=== PATIENT | female | born 1960 | race Two or more races ===

== ENCOUNTER 2021-01-06 16:12 | Inpatient (IN) | payer OTHER, MEDICAID ==
[~2021-01-06] VITALS: Ht 157.5 cm; Wt 128.1 kg
[2021-01-06 17:03] LABS: Basophils # (auto) 0.1 10 ^3/uL (0-0.2); Basophils % (auto) 0.8 % (0.0-2.0); Eosinophils # (auto) 0.1 10 ^3/uL (0-0.8); Eosinophils % (auto) 0.7 % (0.0-7.0); Hematocrit 42.8 % (36.0-46.0); Hemoglobin 14.8 g/dL (12.2-16.2); Lymphocytes # (auto) 3.7 10 ^3/uL (0.4-5.4); Mean Corpuscular Hemoglobin 30.3 pg (28.0-32.0); Mean Corpuscular Hgb Conc. 34.7 g/dL (32.0-36.0); Mean Corpuscular Volume 87.4 fL (80.0-100.0); Monocytes # (auto) 0.6 10 ^3/uL (0-1.3); Monocytes % (auto) 6.2 % (0.0-12.0); Neutrophils # (auto) 4.5 10 ^3/uL (1.6-8.6); Neutrophils % (auto) 50.3 % (37.0-80.0); Nucleated Red Blood Cells % 0.1 %; Platelet Count (auto) 269 10^3/uL (140-450); Red Cell Distribution Width 13.4 % (11.8-14.3); White Blood Cell 8.9 10^3/uL (4.4-10.8)
[2021-01-06 17:21] LABS: Albumin 3.6 g/dL (3.4-5.0); Anion Gap 9 (5-15); Aspartate Aminotransferase 70 U/L (15-37); BUN/Creatinine Ratio 25.9; Blood Urea Nitrogen 15 mg/dL (7-18); Calcium 8.9 mg/dL (8.5-10.1); Carbon Dioxide 23 mmol/L (21-32); Chloride 108 mmol/L (98-107); GFR African American 137 mL/min; GFR Non-African American 113 mL/min; Glucose 112 mg/dL (74-106); Magnesium 2.1 mg/dL (1.6-2.6); Sodium 140 mmol/L (136-145)
[2021-01-06 17:25] LABS: Alanine Aminotransferase 67 U/L (13-56); Alkaline Phosphatase 108 U/L (45-117); Bilirubin, Total 0.4 mg/dL (0.2-1.0); Total Protein 7.4 g/dL (6.4-8.2)
[2021-01-07] MEDS ORDERED: NITROGLYCERIN 0.4 MG SL TAB SL PRN (00:30)
[2021-01-07] MEDS ORDERED: DOCUSATE SOD 100 MG CAP PO PRN (00:30)
[2021-01-07] MEDS ORDERED: TEMAZEPAM 15 MG CAP PO PRN (00:30)
[2021-01-07] MEDS ORDERED: MORPHINE SULFATE 4 MG/ML SYR/VIAL IV PRN (00:30)
[2021-01-07] MEDS ORDERED: MORPHINE SULF INJ 2 MG/ML SYRINGE 1ML IV PRN (00:30)
[2021-01-07] MEDS: SODIUM CHLOR 0.9% PF (SALINE LOCK) 10ML VIAL/SYR IV SCH ×3 (06:19→21:34)
[2021-01-07 09:00] VITALS: BP 118/81
[2021-01-07] MEDS: ZINC SULFATE 220mg CAP or TAB PO SCH (09:29)
[2021-01-07] MEDS: ASCORBIC ACID 500 MG TAB PO SCH ×2 (09:30→21:33)
[2021-01-07] MEDS: MULTIPLE VITAMIN TAB PO SCH (09:30)
[2021-01-07] MEDS: FAMOTIDINE 20 MG TAB PO SCH ×2 (09:30→21:34)
[2021-01-07] MEDS: HYDROcodone-ACET 5/325MG TAB PO PRN (09:31)
[2021-01-07] MEDS ORDERED: METF-370 PO (09:57)
[2021-01-07] MEDS ORDERED: METO-289 PO (09:57)
[2021-01-07] MEDS ORDERED: NITR0.4S29 SL (09:57)
[2021-01-07] MEDS ORDERED: RIVA20TA PO (09:57)
[2021-01-07] MEDS ORDERED: FURO20TA3 PO (09:57)
[2021-01-07] MEDS ORDERED: TRAM50TA2 PO (09:57)
[2021-01-07] MEDS ORDERED: ATOR20TA50 PO (09:57)
[2021-01-07] MEDS ORDERED: CARVEDILOL 12.5 MG TAB PO SCH (10:00)
[2021-01-07] MEDS ORDERED: ENOXAPARIN SOD 40 MG/0.4 ML SYRINGE SC SCH (10:00)
[2021-01-07 11:25] LABS: Basophils # (auto) 0 10 ^3/uL (0-0.2); Basophils % (auto) 0.5 % (0.0-2.0); Eosinophils # (auto) 0 10 ^3/uL (0-0.8); Eosinophils % (auto) 0.5 % (0.0-7.0); Hematocrit 42.1 % (36.0-46.0); Hemoglobin 14.4 g/dL (12.2-16.2); Lymphocytes # (auto) 2.5 10 ^3/uL (0.4-5.4); Lymphocytes % (auto) 37.8 % (10.0-50.0); Mean Corpuscular Hgb Conc. 34.2 g/dL (32.0-36.0); Mean Corpuscular Volume 87.9 fL (80.0-100.0); Monocytes # (auto) 0.3 10 ^3/uL (0-1.3); Monocytes % (auto) 4.9 % (0.0-12.0); Neutrophils # (auto) 3.7 10 ^3/uL (1.6-8.6); Neutrophils % (auto) 56.3 % (37.0-80.0); Nucleated Red Blood Cells % 0.1 %; Platelet Count (auto) 258 10^3/uL (140-450); Red Blood Cells 4.79 10^6/uL (4.0-5.20); Red Cell Distribution Width 13.6 % (11.8-14.3); White Blood Cell 6.5 10^3/uL (4.4-10.8)
[2021-01-07 12:50] VITALS: BP 105/66
[2021-01-07 13:39] LABS: Albumin 3.4 g/dL (3.4-5.0); BUN/Creatinine Ratio 24.6; Bilirubin, Total 0.5 mg/dL (0.2-1.0)
[2021-01-07 16:31] VITALS: BP 102/62
[2021-01-07] MEDS: ACETAMINOPHEN 325 MG TAB PO PRN (17:02)
[2021-01-07] MEDS: RIVAROXABAN 20 MG TAB PO SCH (17:17)
[2021-01-07] MEDS: METOPROLOL TARTRATE 50 MG TAB PO SCH (21:34)
[2021-01-07 22:30] VITALS: BP 138/69
[2021-01-08 05:00] VITALS: BP 105/73
[2021-01-08] MEDS: SODIUM CHLOR 0.9% PF (SALINE LOCK) 10ML VIAL/SYR IV SCH ×3 (06:00→21:40)
[2021-01-08 07:51] LABS: Basophils # (auto) 0 10 ^3/uL (0-0.2); Basophils % (auto) 0.7 % (0.0-2.0); Eosinophils # (auto) 0.1 10 ^3/uL (0-0.8); Eosinophils % (auto) 1.1 % (0.0-7.0); Hematocrit 40.7 % (36.0-46.0); Lymphocytes # (auto) 2.6 10 ^3/uL (0.4-5.4); Lymphocytes % (auto) 49.4 % (10.0-50.0); Mean Corpuscular Hemoglobin 30.3 pg (28.0-32.0); Mean Corpuscular Hgb Conc. 34.3 g/dL (32.0-36.0); Mean Corpuscular Volume 88.4 fL (80.0-100.0); Monocytes # (auto) 0.4 10 ^3/uL (0-1.3); Neutrophils # (auto) 2.2 10 ^3/uL (1.6-8.6); Neutrophils % (auto) 41.8 % (37.0-80.0); Nucleated Red Blood Cells % 0.7 %; Platelet Count (auto) 241 10^3/uL (140-450); Red Blood Cells 4.61 10^6/uL (4.0-5.20); Red Cell Distribution Width 13.3 % (11.8-14.3); White Blood Cell 5.3 10^3/uL (4.4-10.8)
[2021-01-08 08:03] LABS: Albumin 3.3 g/dL (3.4-5.0); Calcium 8.7 mg/dL (8.5-10.1); Potassium 4.3 mmol/L (3.5-5.1)
[2021-01-08 08:07] LABS: BUN/Creatinine Ratio 18.3; Bilirubin, Total 0.4 mg/dL (0.2-1.0); Total Protein 6.7 g/dL (6.4-8.2)
[2021-01-08] MEDS: ASCORBIC ACID 500 MG TAB PO SCH ×2 (08:55→21:39)
[2021-01-08] MEDS: ASPirin 81 mg TAB PO SCH (08:55)
[2021-01-08] MEDS: MULTIPLE VITAMIN TAB PO SCH (08:55)
[2021-01-08] MEDS: METOPROLOL TARTRATE 50 MG TAB PO SCH ×2 (08:56→21:38)
[2021-01-08] MEDS: FAMOTIDINE 20 MG TAB PO SCH ×2 (08:56→21:39)
[2021-01-08] MEDS: ACETAMINOPHEN 325 MG TAB PO PRN (08:57)
[2021-01-08] MEDS: ZINC SULFATE 220mg CAP or TAB PO SCH (08:58)
[2021-01-08 09:00] VITALS: BP 106/56
[2021-01-08] MEDS ORDERED: diphenhdrAMINE HCL 25 MG CAP PO ONE (10:30)
[2021-01-08] MEDS: traMADol HCL 50 MG TAB PO PRN ×2 (10:31→21:40)
[2021-01-08 13:00] VITALS: BP 140/93
[2021-01-08 16:52] VITALS: BP 125/87
[2021-01-08] MEDS: RIVAROXABAN 20 MG TAB PO SCH (18:00)
[2021-01-08] MEDS: ONDANSETRON HCL 4 MG/2 ML VIAL IV PRN (18:32)
[2021-01-08] MEDS: HYDROcodone-ACET 5/325MG TAB PO PRN (19:04)
[2021-01-08 22:00] VITALS: BP 132/66
[2021-01-09] MEDS: ACETAMINOPHEN 325 MG TAB PO PRN (03:27)
[2021-01-09] MEDS: ONDANSETRON HCL 4 MG/2 ML VIAL IV PRN (03:28)
[2021-01-09] MEDS: SODIUM CHLOR 0.9% PF (SALINE LOCK) 10ML VIAL/SYR IV SCH ×3 (03:58→22:00)
[2021-01-09 05:00] VITALS: BP 123/65
[2021-01-09 08:50] VITALS: BP 112/64
[2021-01-09] MEDS: ASPirin 81 mg TAB PO SCH (10:00)
[2021-01-09] MEDS: ASCORBIC ACID 500 MG TAB PO SCH ×2 (10:00→21:30)
[2021-01-09] MEDS: METOPROLOL TARTRATE 50 MG TAB PO SCH ×2 (10:00→21:30)
[2021-01-09] MEDS: FAMOTIDINE 20 MG TAB PO SCH ×2 (10:00→21:30)
[2021-01-09] MEDS: MULTIPLE VITAMIN TAB PO SCH (10:01)
[2021-01-09] MEDS: traMADol HCL 50 MG TAB PO PRN ×3 (10:01→22:52)
[2021-01-09] MEDS: ZINC SULFATE 220mg CAP or TAB PO SCH (10:01)
[2021-01-09 13:04] VITALS: BP 140/77
[2021-01-09 16:49] VITALS: BP 115/76
[2021-01-09] MEDS: RIVAROXABAN 20 MG TAB PO SCH (17:55)
[2021-01-09 22:00] VITALS: BP 126/72
[2021-01-10 05:00] VITALS: BP 115/67
[2021-01-10] MEDS: SODIUM CHLOR 0.9% PF (SALINE LOCK) 10ML VIAL/SYR IV SCH ×2 (06:18→13:10)
[2021-01-10] MEDS: traMADol HCL 50 MG TAB PO PRN (06:26)
[2021-01-10 09:00] VITALS: BP 110/68
[2021-01-10] MEDS: ASPirin 81 mg TAB PO SCH (09:13)
[2021-01-10] MEDS: FAMOTIDINE 20 MG TAB PO SCH (09:13)
[2021-01-10] MEDS: ASCORBIC ACID 500 MG TAB PO SCH (09:14)
[2021-01-10] MEDS: ZINC SULFATE 220mg CAP or TAB PO SCH (09:14)
[2021-01-10] MEDS: MULTIPLE VITAMIN TAB PO SCH (09:14)
[2021-01-10] MEDS: METOPROLOL TARTRATE 50 MG TAB PO SCH (09:15)
[2021-01-10] MEDS: ONDANSETRON HCL 4 MG/2 ML VIAL IV PRN (11:12)
[2021-01-10] MEDS ORDERED: KETOROLAC TROMETH 30 MG/ML 1ML VIAL IV PRN (11:30)
[2021-01-10 13:00] VITALS: BP 110/73
[2021-01-10 17:28] VITALS: BP 108/66
== END 2021-01-10 17:40 | disposition home or self-care (01) | DRG 309 ==
LOC: ER 16:12 → TELE 01-07 00:16 → TELE-WESTW 01-07 08:12
PROVIDERS: ADMIT Nurse Practitioner Family; ATTEND Family Medicine
DX: I48.20 Chronic atrial fibrillation, unspecified (principal); D68.59 Other primary thrombophilia; I25.2 Old myocardial infarction; I11.0 Hypertensive heart disease with heart failure; Z79.01 Long term (current) use of anticoagulants; Z79.84 Long term (current) use of oral hypoglycemic drugs; Z79.899 Other long term (current) drug therapy; R79.89 Other specified abnormal findings of blood chemistry; Z20.822 Contact with and (suspected) exposure to COVID-19; I50.9 Heart failure, unspecified
CPT/HCPCS: 36415; 71045; 71046; 80053; 83036; 83735; 83880; 84443; 84484; 85025; 87426; 93005; 93306; G0378; J1885; J2405

== ENCOUNTER 2021-02-05 12:03 | Inpatient (IN) | payer OTHER, MEDICAID ==
[~2021-02-05] VITALS: Ht 157.5 cm; Wt 123.7 kg
[~2021-02-05 12:03] MED LIST: ATOR20TA50 PO; FURO20TA3 PO; METF-370 PO; METO-289 PO; NITR0.4S29 SL; RIVA20TA PO; TRAM50TA2 PO
[2021-02-05] MEDS ORDERED: ASPirin 81 mg TAB PO ONE (12:45)
[2021-02-05 12:54] LABS: Basophils # (auto) 0 10 ^3/uL (0-0.2); Basophils % (auto) 0.4 % (0.0-2.0); Eosinophils # (auto) 0 10 ^3/uL (0-0.8); Eosinophils % (auto) 0.4 % (0.0-7.0); Hematocrit 45.4 % (36.0-46.0); Hemoglobin 15.2 g/dL (12.2-16.2); Lymphocytes # (auto) 3.9 10 ^3/uL (0.4-5.4); Lymphocytes % (auto) 47.6 % (10.0-50.0); Mean Corpuscular Hemoglobin 29.4 pg (28.0-32.0); Mean Corpuscular Hgb Conc. 33.4 g/dL (32.0-36.0); Monocytes # (auto) 0.6 10 ^3/uL (0-1.3); Neutrophils # (auto) 3.7 10 ^3/uL (1.6-8.6); Neutrophils % (auto) 44.6 % (37.0-80.0); Nucleated Red Blood Cells % 0.1 %; Red Blood Cells 5.16 10^6/uL (4.0-5.20); Red Cell Distribution Width 13.3 % (11.8-14.3); White Blood Cell 8.2 10^3/uL (4.4-10.8)
[2021-02-05 13:08] LABS: INR 1.15 (0.9-1.15)
[2021-02-05 13:13] LABS: Chloride 111 mmol/L (98-107); Sodium 141 mmol/L (136-145)
[2021-02-05 13:22] LABS: Alanine Aminotransferase 46 U/L (13-56); Albumin 3.7 g/dL (3.4-5.0); Alkaline Phosphatase 103 U/L (45-117); Anion Gap 7 (5-15); Aspartate Aminotransferase 43 U/L (15-37); BUN/Creatinine Ratio 15.3; Bilirubin, Total 0.4 mg/dL (0.2-1.0); Blood Urea Nitrogen 9 mg/dL (7-18); Calcium 8.9 mg/dL (8.5-10.1); Carbon Dioxide 23 mmol/L (21-32); GFR African American 135 mL/min; GFR Non-African American 111 mL/min; Glucose 103 mg/dL (74-106); Magnesium 2.3 mg/dL (1.6-2.6); Total Protein 7.7 g/dL (6.4-8.2)
[2021-02-05] MEDS ORDERED: AMIODARONE HCL 150 MG in D5W 5% 100 ML IV ONE (14:00)
[2021-02-05] MEDS ORDERED: AMIODARONE 450mg/250ml AE 250 ML IV SCH ×2 (14:15→20:15)
[2021-02-05] MEDS ORDERED: FUROSEMIDE 20 MG TAB PO PRN (15:15)
[2021-02-05] MEDS ORDERED: NITROGLYCERIN 0.4 MG SL TAB SL SCH (15:15)
[2021-02-05] MEDS: AMIODARONE HCL 200 MG TAB PO SCH ×2 (15:52→23:24)
[2021-02-05] MEDS: NITROGLYCERIN 0.4 MG SL TAB SL PRN ×2 (16:42→17:15)
[2021-02-05] MEDS ORDERED: METOPROLOL SUCCINATE XL 50 MG TAB PO ONE (18:00)
[2021-02-05] MEDS: METOPROLOL SUCCINATE XL 50 MG TAB PO SCH (18:20)
[2021-02-05] MEDS: RIVAROXABAN 20 MG TAB PO SCH (18:23)
[2021-02-05 23:00] VITALS: BP 139/87
[2021-02-05] MEDS: traMADol HCL 50 MG TAB PO PRN (23:24)
[2021-02-05] MEDS: metFORMIN HYDROCHLORIDE 500 MG TAB PO SCH (23:24)
[2021-02-05 23:51] VITALS: BP 139/87
[2021-02-06] VITALS (7 sets, daily range): BP systolic 107–122; BP diastolic 59–79
[2021-02-06] MEDS: AMIODARONE HCL 200 MG TAB PO SCH ×3 (06:16→21:38)
[2021-02-06] MEDS: metFORMIN HYDROCHLORIDE 500 MG TAB PO SCH ×2 (08:40→18:38)
[2021-02-06] MEDS: METOPROLOL SUCCINATE XL 50 MG TAB PO SCH (08:54)
[2021-02-06] MEDS ORDERED: ATORVASTATIN 20 MG TAB PO SCH ×2 (10:00→22:00)
[2021-02-06] MEDS: traMADol HCL 50 MG TAB PO PRN (12:30)
[2021-02-06] MEDS: ACETAMINOPHEN 500 MG TAB PO PRN ×2 (13:33→21:38)
[2021-02-06] MEDS: RIVAROXABAN 20 MG TAB PO SCH (18:39)
[2021-02-07 05:00] VITALS: BP 95/55
[2021-02-07] MEDS: AMIODARONE HCL 200 MG TAB PO SCH (06:45)
[2021-02-07] MEDS: metFORMIN HYDROCHLORIDE 500 MG TAB PO SCH (07:56)
[2021-02-07] MEDS: ACETAMINOPHEN 500 MG TAB PO PRN (07:57)
[2021-02-07 09:00] VITALS: BP 109/67
[2021-02-07] MEDS: METOPROLOL SUCCINATE XL 50 MG TAB PO SCH (10:00)
[2021-02-07 12:09] VITALS: BP 109/67
== END 2021-02-07 14:20 | disposition home or self-care (01) | DRG 308 ==
LOC: ER 12:03 → TELE 15:13 → TELE-EAST 22:57
PROVIDERS: ADMIT Internal Medicine; ATTEND Family Medicine
DX: I48.91 Unspecified atrial fibrillation (principal); I50.41 Acute combined systolic (congestive) and diastolic (congestive) heart failure; Z68.42 Body mass index [BMI] 45.0-49.9, adult; I95.89 Other hypotension; I11.0 Hypertensive heart disease with heart failure; E66.9 Obesity, unspecified; Z20.822 Contact with and (suspected) exposure to COVID-19; E78.5 Hyperlipidemia, unspecified; Z82.49 Family history of ischemic heart disease and other diseases of the circulatory system; Z83.3 Family history of diabetes mellitus; Z88.6 Allergy status to analgesic agent; Z88.8 Allergy status to other drugs, medicaments and biological substances; I25.2 Old myocardial infarction; Z90.49 Acquired absence of other specified parts of digestive tract; Z79.899 Other long term (current) drug therapy
CPT/HCPCS: 36415; 71045; 80053; 83735; 83880; 84443; 84484; 85025; 85610; 85730; 87081; 87426; 93005; 96365; 96367; G0378; J7060

== ENCOUNTER 2021-03-28 12:47 | Emergency (ER) | payer OTHER, MEDICAID ==
[~2021-03-28] VITALS: Ht 157.5 cm; Wt 116.6 kg
[2021-03-28 13:12] LABS: Basophils # (auto) 0 10 ^3/uL (0-0.2); Basophils % (auto) 0.6 % (0.0-2.0); Eosinophils # (auto) 0 10 ^3/uL (0-0.8); Eosinophils % (auto) 0.3 % (0.0-7.0); Hematocrit 46.8 % (36.0-46.0); Hemoglobin 15.6 g/dL (12.2-16.2); Lymphocytes # (auto) 3.2 10 ^3/uL (0.4-5.4); Mean Corpuscular Hemoglobin 29.3 pg (28.0-32.0); Mean Corpuscular Hgb Conc. 33.4 g/dL (32.0-36.0); Mean Corpuscular Volume 87.8 fL (80.0-100.0); Monocytes # (auto) 0.5 10 ^3/uL (0-1.3); Monocytes % (auto) 6.7 % (0.0-12.0); Neutrophils # (auto) 4.3 10 ^3/uL (1.6-8.6); Neutrophils % (auto) 52.4 % (37.0-80.0); Nucleated Red Blood Cells % 0.2 %; Red Blood Cells 5.33 10^6/uL (4.0-5.20); Red Cell Distribution Width 13.6 % (11.8-14.3); White Blood Cell 8.1 10^3/uL (4.4-10.8)
[2021-03-28 13:38] LABS: Alanine Aminotransferase 69 U/L (13-56); Albumin 3.5 g/dL (3.4-5.0); Anion Gap 9 (5-15); Aspartate Aminotransferase 61 U/L (15-37); BUN/Creatinine Ratio 9.4; Blood Urea Nitrogen 9 mg/dL (7-18); Calcium 9.2 mg/dL (8.5-10.1); Carbon Dioxide 23 mmol/L (21-32); Chloride 109 mmol/L (98-107); GFR African American 77 mL/min; GFR Non-African American 63 mL/min; Glucose 160 mg/dL (74-106); Potassium 3.9 mmol/L (3.5-5.1); Sodium 141 mmol/L (136-145)
[2021-03-28 13:43] LABS: Alkaline Phosphatase 99 U/L (45-117); Bilirubin, Total 0.6 mg/dL (0.2-1.0); Total Protein 7.5 g/dL (6.4-8.2)
[2021-03-28] MEDS ORDERED: AZITHROMYCIN 500MG/ 250ML 250 ML IV ONE (15:15)
[2021-03-28] MEDS ORDERED: cefTRIAXone 1GM/50ML D5W 50 ML IV ONE (15:15)
[2021-03-28 15:51] LABS: Urine Amorphous Crystal FEW /hpf (None Seen); Urine Bacteria FEW /hpf (None Seen); Urine Blood Negative /uL (Negative); Urine Hyaline Cast FEW /lpf (0 - 2); Urine Mucus FEW (None Seen); Urine Specific Gravity 1.026 (1.001-1.035); Urine WBC 16 /hpf (0 - 5)
[2021-03-28 17:00] VITALS: BP 117/75
== END 2021-03-28 18:32 | disposition home or self-care (01) ==
LOC: ER 12:47
DX: I11.0 Hypertensive heart disease with heart failure (principal); I50.9 Heart failure, unspecified; N39.0 Urinary tract infection, site not specified; J18.9 Pneumonia, unspecified organism; E78.00 Pure hypercholesterolemia, unspecified; I48.91 Unspecified atrial fibrillation; Z88.5 Allergy status to narcotic agent; Z79.84 Long term (current) use of oral hypoglycemic drugs; Z79.899 Other long term (current) drug therapy; Z90.49 Acquired absence of other specified parts of digestive tract
CPT/HCPCS: 36415; 71045; 80053; 81001; 83880; 84484; 85025; 93005; 96365; 96368; 99285; J0456; J0696

== ENCOUNTER 2021-06-12 08:43 | Emergency (ER) | payer OTHER, MEDICAID ==
[~2021-06-12] VITALS: Ht 157.5 cm; Wt 105.7 kg
[2021-06-12] MEDS ORDERED: methylPREDNISolone SOD SUCC 125 MG/2 ML VL IM ONE (11:45)
[2021-06-12] MEDS ORDERED: cefTRIAXone SOD 1,000 MG VL ONE (12:14)
[2021-06-12 12:54] VITALS: BP 118/73
== END 2021-06-12 12:38 | disposition home or self-care (01) ==
LOC: ER 08:43
DX: T78.40XA Allergy, unspecified, initial encounter (principal); N39.0 Urinary tract infection, site not specified; I11.0 Hypertensive heart disease with heart failure; I50.9 Heart failure, unspecified; Z90.49 Acquired absence of other specified parts of digestive tract; X58.XXXA Exposure to other specified factors, initial encounter
CPT/HCPCS: 96372; 99283; J0696; J2930

== ENCOUNTER 2023-04-29 16:24 | Inpatient (IN) | payer MEDICAID, OTHER ==
[~2023-04-29] VITALS: Ht 157.5 cm; Wt 113.5 kg
[2023-04-29 17:11] LABS: Basophils # (auto) 0 10 ^3/uL (0-0.2); Basophils % (auto) 0.3 % (0.0-2.0); Eosinophils # (auto) 0 10 ^3/uL (0-0.8); Eosinophils % (auto) 0.1 % (0.0-7.0); Hematocrit 45.6 % (36.0-46.0); Hemoglobin 15.2 g/dL (12.2-16.2); Lymphocytes # (auto) 2.7 10 ^3/uL (0.4-5.4); Lymphocytes % (auto) 29.7 % (10.0-50.0); Mean Corpuscular Hemoglobin 29.3 pg (28.0-32.0); Mean Corpuscular Hgb Conc. 33.4 g/dL (32.0-36.0); Mean Corpuscular Volume 87.7 fL (80.0-100.0); Monocytes # (auto) 0.6 10 ^3/uL (0-1.3); Neutrophils # (auto) 5.9 10 ^3/uL (1.6-8.6); Neutrophils % (auto) 63.9 % (37.0-80.0); Red Blood Cells 5.21 10^6/uL (4.0-5.20); Red Cell Distribution Width 13.4 % (11.8-14.3); White Blood Cell 9.2 10^3/uL (4.4-10.8)
[2023-04-29 17:14] VITALS: PULSE 120; RESP 17; O2SAT 96
[2023-04-29] MEDS ORDERED: dilTIAZem 125mg/125ml BAG KIT 100 ML IV ONE (17:15)
[2023-04-29] MEDS ORDERED: dilTIAZem 25 MG/5 ML VIAL IV ONE (17:15)
[2023-04-29 17:31] LABS: Alanine Aminotransferase 23 U/L (7-40); Albumin 4.6 g/dL (3.2-4.8); Alkaline Phosphatase 123 U/L (46-116); Anion Gap 8 (5-15); Aspartate Aminotransferase 23 U/L (13-40); BUN/Creatinine Ratio 16.4 (10.0-20.0); Bilirubin, Total 0.6 mg/dL (0.2-1.0); Blood Urea Nitrogen 12 mg/dL (9-23); Calcium 9.7 mg/dL (8.7-10.4); Carbon Dioxide 26 mmol/L (20-30); Chloride 105 mmol/L (98-107); Glucose 102 mg/dL (74-106); Potassium 4.3 mmol/L (3.5-5.1); Sodium 139 mmol/L (136-145); Total Protein 7.1 g/dL (5.7-8.2)
[2023-04-29 18:06] LABS: INR 1.13 (0.9-1.15); Prothrombin Time 11.8 sec (9.3-11.8)
[2023-04-29 19:35] VITALS: PULSE 103; RESP 15; O2SAT 95
[2023-04-29] MEDS ORDERED: HYDROcodone-ACET 5/325MG TAB PO ONE (20:30)
[2023-04-29] MEDS ORDERED: NITROGLYCERIN 0.4 MG SL TAB SL PRN (22:15)
[2023-04-29] MEDS ORDERED: ONDANSETRON HCL 4 MG/2 ML VIAL IV PRN (22:15)
[2023-04-29 23:33] LABS: Urine Bacteria FEW /hpf (None Seen); Urine Blood Negative /uL (Negative); Urine Clarity Clear (Clear); Urine Color Colorless (Yellow); Urine Protein, UAD Negative (Negative); Urine Specific Gravity 1.011 (1.001-1.035); Urine Urobilinogen Normal (Negative); Urine WBC 1 /hpf (0 - 5)
[2023-04-30] VITALS (8 sets, daily range): BP systolic 117–135; BP diastolic 51–82; PULSE 58–96; RESP 16–20; TEMP 97.6–98.4; O2SAT 96–99
[2023-04-30] MEDS: ACETAMINOPHEN 325 MG TAB PO PRN ×2 (03:40→10:05)
[2023-04-30] MEDS ORDERED: DIGOPOW2 XX (04:17)
[2023-04-30] MEDS ORDERED: APIX5TAB PO (04:17)
[2023-04-30 06:22] LABS: Calcium 8.9 mg/dL (8.5-10.1); Chloride 107 mmol/L (98-107); Potassium 3.5 mmol/L (3.5-5.1); Sodium 140 mmol/L (136-145)
[2023-04-30 06:28] LABS: BUN/Creatinine Ratio 11.9 (10.0-20.0); Blood Urea Nitrogen 8 mg/dL (9-23); Glucose 91 mg/dL (74-106)
[2023-04-30 07:00] LABS: Anion Gap 10 (5-15); Carbon Dioxide 23 mmol/L (20-30)
[2023-04-30] MEDS ORDERED: RIVAROXABAN 20 MG TAB PO SCH (10:00)
[2023-04-30] MEDS: METOPROLOL SUCCINATE XL 50 MG TAB PO SCH (10:08)
[2023-04-30] MEDS ORDERED: DIGOXIN 0.125 MG TAB PO ONE (11:15)
[2023-04-30] MEDS ORDERED: HYDROcodone-ACET 5/325MG TAB PO PRN (11:15)
[2023-04-30 12:05] LABS: Hepatitis B Surface Antigen Negative (Negative)
[2023-04-30 12:27] LABS: Hepatitis C Antibody Negative (Negative)
[2023-04-30] MEDS ORDERED: FAMO-12 PO (13:24)
[2023-04-30] MEDS ORDERED: ATOR40TA52 PO (13:24)
[2023-04-30] MEDS ORDERED: CITA10TA6 PO (13:24)
[2023-04-30] MEDS ORDERED: LEVO150T10 PO (13:24)
[2023-04-30] MEDS ORDERED: [UNRECOGNIZED DRUG - CODE] IV (13:24)
[2023-04-30] MEDS ORDERED: ACET-6 PO (17:13)
[2023-04-30] MEDS ORDERED: DILT60TA PO (17:13)
[2023-04-30] MEDS ORDERED: AMIO200T33 PO (17:13)
[2023-04-30] MEDS ORDERED: DIGO125T11 PO (18:07)
[2023-04-30] MEDS: ATORVASTATIN 20 MG TAB PO SCH (21:22)
[2023-04-30] MEDS ORDERED: APIXABAN 5 MG TAB PO SCH (22:00)
[2023-05-01] VITALS (7 sets, daily range): BP systolic 113–145; BP diastolic 64–92; PULSE 82–93; RESP 16–20; TEMP 97.9–98.5; O2SAT 95–97
[2023-05-01] MEDS: ACETAMINOPHEN 325 MG TAB PO PRN ×2 (05:40→12:05)
[2023-05-01 07:40] LABS: Chloride 109 mmol/L (98-107); Sodium 144 mmol/L (136-145)
[2023-05-01 07:41] LABS: Anion Gap 11 (5-15); Calcium 9.5 mg/dL (8.5-10.1); Carbon Dioxide 24 mmol/L (20-30)
[2023-05-01 07:46] LABS: BUN/Creatinine Ratio 11.8 (10.0-20.0); Blood Urea Nitrogen 9 mg/dL (9-23); Glucose 95 mg/dL (74-106)
[2023-05-01] MEDS: DIGOXIN 0.125 MG TAB PO SCH (09:56)
[2023-05-01] MEDS: CITALOPRAM HYDROBR 20 MG TAB PO SCH (09:57)
[2023-05-01] MEDS: APIXABAN 5 MG TAB PO SCH ×2 (09:57→22:00)
[2023-05-01] MEDS: METOPROLOL SUCCINATE XL 50 MG TAB PO SCH ×2 (09:58→11:13)
[2023-05-01] MEDS ORDERED: LORATADINE 10 MG TAB PO ONE (11:00)
[2023-05-01] MEDS ORDERED: HYDROcodone-ACET 5/325MG TAB PO PRN (11:15)
[2023-05-01] MEDS: THROAT LOZENGES(CEPASTAT) MT PRN (12:05)
[2023-05-01] MEDS: ATORVASTATIN 20 MG TAB PO SCH (22:00)
[2023-05-02] VITALS (8 sets, daily range): BP systolic 115–128; BP diastolic 31–84; PULSE 68–114; RESP 18–20; TEMP 97.8–98.7; O2SAT 96–99
[2023-05-02] MEDS: ACETAMINOPHEN 325 MG TAB PO PRN (04:52)
[2023-05-02] MEDS: CITALOPRAM HYDROBR 20 MG TAB PO SCH (10:09)
[2023-05-02] MEDS: THROAT LOZENGES(CEPASTAT) MT PRN ×2 (10:09→21:49)
[2023-05-02] MEDS: APIXABAN 5 MG TAB PO SCH ×2 (10:09→21:55)
[2023-05-02] MEDS: DIGOXIN 0.125 MG TAB PO SCH (10:12)
[2023-05-02] MEDS: METOPROLOL SUCCINATE XL 50 MG TAB PO SCH (10:12)
[2023-05-02] MEDS ORDERED: AMIODARONE HCL 200 MG TAB PO ONE (10:45)
[2023-05-02] MEDS: ATORVASTATIN 20 MG TAB PO SCH (21:55)
[2023-05-02] MEDS ORDERED: AMIODARONE HCL 200 MG TAB PO SCH (22:00)
[2023-05-03] MEDS: DIGOXIN 0.125 MG TAB PO SCH (10:00)
[2023-05-03] MEDS: APIXABAN 5 MG TAB PO SCH ×2 (10:00→21:40)
[2023-05-03] MEDS: CITALOPRAM HYDROBR 20 MG TAB PO SCH (10:00)
[2023-05-03 16:25] VITALS: BP 112/73; PULSE 86; RESP 20; TEMP 97.8; O2SAT 96
[2023-05-03 20:15] VITALS: PULSE 101; RESP 18; O2SAT 100
[2023-05-03] MEDS: ATORVASTATIN 20 MG TAB PO SCH (21:41)
[2023-05-03] MEDS: METOPROLOL SUCCINATE XL 50 MG TAB PO SCH (21:45)
[2023-05-03] MEDS: traMADol HCL 50 MG TAB PO PRN (21:45)
[2023-05-03 22:00] VITALS: BP 131/88; PULSE 92; RESP 18; TEMP 98; O2SAT 98
[2023-05-04 08:00] VITALS: PULSE 82; PULSE 91; RESP 18; O2SAT 96
[2023-05-04 08:30] VITALS: BP 126/87; PULSE 91; RESP 19; TEMP 97.8; O2SAT 93
[2023-05-04] MEDS: CITALOPRAM HYDROBR 20 MG TAB PO SCH (08:44)
[2023-05-04] MEDS: APIXABAN 5 MG TAB PO SCH (08:44)
[2023-05-04] MEDS: DIGOXIN 0.125 MG TAB PO SCH (08:45)
[2023-05-04] MEDS: METOPROLOL SUCCINATE XL 50 MG TAB PO SCH (08:48)
[2023-05-04] MEDS: THROAT LOZENGES(CEPASTAT) MT PRN (08:49)
[2023-05-04] MEDS: traMADol HCL 50 MG TAB PO PRN (08:52)
[2023-05-04 12:30] VITALS: BP 137/84; PULSE 89; RESP 19; TEMP 98.7; O2SAT 95
[2023-05-04 16:38] VITALS: BP 136/82; PULSE 89; RESP 19; TEMP 98.5; O2SAT 95
[2023-05-04] MEDS ORDERED: METO-6 PO (17:38)
== END 2023-05-04 18:00 | disposition left against medical advice (07) | DRG 201 ==
LOC: ER 16:24 → TELE 22:08 → TELE-WESTW 04-30 03:23
PROVIDERS: ADMIT Nurse Practitioner; ATTEND Internal Medicine
DX: I48.19 Other persistent atrial fibrillation (principal); I11.0 Hypertensive heart disease with heart failure; I50.9 Heart failure, unspecified; E03.9 Hypothyroidism, unspecified; I25.10 Atherosclerotic heart disease of native coronary artery without angina pectoris; E66.01 Morbid (severe) obesity due to excess calories; I48.0 Paroxysmal atrial fibrillation; Z68.42 Body mass index [BMI] 45.0-49.9, adult; E78.5 Hyperlipidemia, unspecified; G47.30 Sleep apnea, unspecified; Z53.29 Procedure and treatment not carried out because of patient's decision for other reasons; J45.909 Unspecified asthma, uncomplicated; E05.80 Other thyrotoxicosis without thyrotoxic crisis or storm; T46.2X5A Adverse effect of other antidysrhythmic drugs, initial encounter; Y92.89 Other specified places as the place of occurrence of the external cause; Z82.49 Family history of ischemic heart disease and other diseases of the circulatory system; Z88.5 Allergy status to narcotic agent; Z83.3 Family history of diabetes mellitus; Z91.199 Patient's noncompliance with other medical treatment and regimen due to unspecified reason; I25.2 Old myocardial infarction; Z90.49 Acquired absence of other specified parts of digestive tract
CPT/HCPCS: 36415; 71046; 80048; 80053; 80162; 81001; 83735; 83880; 84436; 84443; 84481; 84484; 85025; 85610; 85730; 86803; 87340; 93005; 93306; 96374; G0378

== ENCOUNTER 2023-05-21 06:59 | Day surgery (SDC) | payer MEDICAID ==
[~2023-05-21] VITALS: Ht 157.5 cm; Wt 113.4 kg
[~2023-05-21 06:59] MED LIST changes: +ACET-6 PO; +APIX5TAB PO; +CITA10TA6 PO; +DIGO125T11 PO; +DILT60TA PO; +FAMO-12 PO; -FURO20TA3 PO; -METF-370 PO; -METO-289 PO; +METO-6 PO; -RIVA20TA PO
[2023-05-21] MEDS ORDERED: MIDAZOLAM HCL 2MG/2ML 2ml VIAL (1mg/ml) IV STA (07:48)
[2023-05-21] MEDS ORDERED: LIDOCAINE VISCOUS 2% 15ML UD MT STA (07:48)
[2023-05-21] MEDS ORDERED: fentaNYL CITRATE 100 MCG/2 ML VL IV STA (07:48)
[2023-05-21] MEDS ORDERED: FLUMAZENIL 0.1 MG/ML INJ 10ML MDV IV ONE (08:17)
[2023-05-21] MEDS ORDERED: NALOXONE HCL 0.4 MG/ML VIAL ONE (08:17)
== END 2023-05-21 10:00 | disposition home or self-care (01) ==
LOC: CATH 06:59
PROVIDERS: ATTEND Internal Medicine
DX: I48.19 Other persistent atrial fibrillation (principal); Z79.01 Long term (current) use of anticoagulants
CPT/HCPCS: 92960; 93005; 93312; J2250; J3010; 99152

== ENCOUNTER 2023-12-11 14:30 | Inpatient (IN) | payer MEDICAID ==
[~2023-12-11] VITALS: Ht 157.5 cm; Wt 114.8 kg
[2023-12-11 15:00] VITALS: PULSE 115; RESP 12; O2SAT 96
[2023-12-11] MEDS: dilTIAZem 25 MG/5 ML VIAL IV ONE (15:16)
[2023-12-11] MEDS: ASPirin 81 mg TAB PO ONE (15:24)
[2023-12-11 16:46] LABS: Urine Bacteria None Seen /hpf (None Seen); Urine WBC None Seen /hpf (0 - 5)
[2023-12-11 17:08] LABS: Chloride 106 mmol/L (98-107); Potassium 4.2 mmol/L (3.5-5.1); Sodium 141 mmol/L (136-145)
[2023-12-11 17:09] LABS: Anion Gap 7 (5-15); Calcium 9.7 mg/dL (8.7-10.4); Carbon Dioxide 28 mmol/L (20-30)
[2023-12-11 17:12] LABS: Urine Blood Negative /uL (Negative); Urine Clarity Clear (Clear); Urine Color Colorless (Yellow); Urine Protein, UAD Negative (Negative); Urine Specific Gravity 1.007 (1.001-1.035); Urine Urobilinogen Normal (Negative)
[2023-12-11 17:14] LABS: BUN/Creatinine Ratio 18.2 (10.0-20.0); Blood Urea Nitrogen 12 mg/dL (9-23); Glucose 119 mg/dL (74-106)
[2023-12-11 17:57] LABS: Basophils # (auto) 0 10 ^3/uL (0-0.2); Basophils % (auto) 0.4 % (0.0-2.0); Eosinophils # (auto) 0.1 10 ^3/uL (0-0.8); Eosinophils % (auto) 0.8 % (0.0-7.0); Hematocrit 41.9 % (36.0-46.0); Hemoglobin 13.9 g/dL (12.2-16.2); Lymphocytes # (auto) 3.3 10 ^3/uL (0.4-5.4); Lymphocytes % (auto) 39.8 % (10.0-50.0); Mean Corpuscular Hgb Conc. 33.1 g/dL (32.0-36.0); Mean Corpuscular Volume 87.5 fL (80.0-100.0); Monocytes # (auto) 0.5 10 ^3/uL (0-1.3); Monocytes % (auto) 6.6 % (0.0-12.0); Neutrophils # (auto) 4.3 10 ^3/uL (1.6-8.6); Neutrophils % (auto) 52.4 % (37.0-80.0); Nucleated Red Blood Cells % 0.1 %; Red Cell Distribution Width 13.5 % (11.8-14.3); White Blood Cell 8.3 10^3/uL (4.4-10.8)
[2023-12-11] MEDS ORDERED: NITROGLYCERIN 0.4 MG SL TAB SL PRN (18:45)
[2023-12-11] MEDS ORDERED: MORPHINE SULFATE INJ 2 MG/ml SYRG IV PRN (18:45)
[2023-12-11] MEDS ORDERED: ACETAMINOPHEN 325 MG TAB PO PRN (18:45)
[2023-12-11] MEDS ORDERED: NITROGLYCERIN 0.4 MG SL TAB SL SCH (19:00)
[2023-12-11 19:30] VITALS: PULSE 92; RESP 18; O2SAT 96
[2023-12-11 19:53] LABS: Triglycerides 122 mg/dL (< 150)
[2023-12-11 19:54] LABS: LDL Cholesterol 74 mg/dL (< 100)
[2023-12-11 19:55] LABS: Cholesterol 132 mg/dL (< 200); HDL Cholesterol 44 mg/dL (40-59)
[2023-12-11] MEDS: MAGNESIUM SULFATE 1GM/100ML 100 ML IV SCH (20:55)
[2023-12-11] MEDS: ACETAMINOPHEN 325 MG TAB PO PRN (20:56)
[2023-12-11] MEDS: dilTIAZem HCL 60 MG TAB PO SCH (22:43)
[2023-12-11] MEDS: APIXABAN 5 MG TAB PO SCH (22:44)
[2023-12-11] MEDS: ATORVASTATIN 20 MG TAB PO SCH (22:44)
[2023-12-11] MEDS: CITALOPRAM HYDROBR 20 MG TAB PO SCH (22:44)
[2023-12-11] MEDS: METOPROLOL SUCCINATE XL 50 MG TAB PO SCH (22:45)
[2023-12-12] VITALS (7 sets, daily range): BP systolic 112–128; BP diastolic 73–83; PULSE 63–87; RESP 14–19; TEMP 98–98.1; O2SAT 95–97
[2023-12-12 06:09] LABS: Basophils # (auto) 0 10 ^3/uL (0-0.2); Basophils % (auto) 0.5 % (0.0-2.0); Eosinophils # (auto) 0.1 10 ^3/uL (0-0.8); Eosinophils % (auto) 1.2 % (0.0-7.0); Hematocrit 41.9 % (36.0-46.0); Hemoglobin 14.1 g/dL (12.2-16.2); Lymphocytes # (auto) 2.6 10 ^3/uL (0.4-5.4); Lymphocytes % (auto) 37.6 % (10.0-50.0); Mean Corpuscular Hemoglobin 29.6 pg (28.0-32.0); Mean Corpuscular Hgb Conc. 33.7 g/dL (32.0-36.0); Mean Corpuscular Volume 87.7 fL (80.0-100.0); Monocytes # (auto) 0.5 10 ^3/uL (0-1.3); Monocytes % (auto) 7.6 % (0.0-12.0); Neutrophils # (auto) 3.7 10 ^3/uL (1.6-8.6); Neutrophils % (auto) 53.1 % (37.0-80.0); Nucleated Red Blood Cells % 0.2 %; Red Blood Cells 4.78 10^6/uL (4.0-5.20); Red Cell Distribution Width 13.8 % (11.8-14.3)
[2023-12-12 06:20] LABS: Alanine Aminotransferase 19 U/L (7-40); Alkaline Phosphatase 122 U/L (46-116); Anion Gap 5 (5-15); Aspartate Aminotransferase 21 U/L (13-40); BUN/Creatinine Ratio 9.5 (10.0-20.0); Blood Urea Nitrogen 7 mg/dL (9-23); Calcium 9.2 mg/dL (8.5-10.1); Carbon Dioxide 26 mmol/L (20-30); Chloride 110 mmol/L (98-107); Glucose 117 mg/dL (74-106); Potassium 3.9 mmol/L (3.5-5.1); Sodium 141 mmol/L (136-145)
[2023-12-12 06:21] LABS: Bilirubin, Total 0.5 mg/dL (0.2-1.0); Total Protein 6.4 g/dL (5.7-8.2)
[2023-12-12] MEDS: DIGOXIN 0.125 MG TAB PO SCH (09:51)
[2023-12-12] MEDS: ASPirin 81 mg TAB PO SCH (09:52)
[2023-12-12] MEDS: FAMOTIDINE 20 MG TAB PO SCH (09:52)
[2023-12-12] MEDS: traMADol HCL 50 MG TAB PO PRN (09:54)
[2023-12-12] MEDS: OPTISON 3ml Vial for INJ IV ONE (10:37)
[2023-12-12] MEDS ORDERED: CITA-77 PO (17:24)
[2023-12-12] MEDS ORDERED: DILT120C20 PO (17:24)
[2023-12-12] MEDS ORDERED: LISI10TA34 PO (17:25)
[2023-12-12] MEDS ORDERED: LEVO150T10 PO (17:25)
[2023-12-12] MEDS ORDERED: ALBU108A5 INH (17:27)
[2023-12-12] MEDS ORDERED: IPR002IS NEB (17:27)
[2023-12-12] MEDS: MELATONIN 5 MG TAB PO ONE (21:28)
[2023-12-13 05:00] VITALS: BP 89/57; PULSE 73; RESP 19; TEMP 97.5; O2SAT 96
[2023-12-13 07:09] LABS: Chloride 109 mmol/L (98-107); Potassium 4.3 mmol/L (3.5-5.1); Sodium 141 mmol/L (136-145)
[2023-12-13 07:10] LABS: Anion Gap 3 (5-15); Calcium 9.5 mg/dL (8.5-10.1); Carbon Dioxide 29 mmol/L (20-30)
[2023-12-13 07:15] LABS: Blood Urea Nitrogen 8 mg/dL (9-23); Glucose 108 mg/dL (74-106)
[2023-12-13 08:00] VITALS: PULSE 72; RESP 18; O2SAT 96
[2023-12-13 09:00] VITALS: BP 127/76; PULSE 70; RESP 18; TEMP 97.7; O2SAT 96
[2023-12-13] MEDS: DOCUSATE SOD 100 MG CAP PO SCH (10:42)
[2023-12-13 13:00] VITALS: BP 112/68; PULSE 78; RESP 16; TEMP 97.7; O2SAT 94
[2023-12-13 16:48] VITALS: BP 127/76; PULSE 70; RESP 18; TEMP 36.5; O2SAT 96
[2023-12-13 17:00] VITALS: BP 106/51; PULSE 60; RESP 18; TEMP 97.7; O2SAT 96
== END 2023-12-13 18:05 | disposition home or self-care (01) | DRG 201 ==
LOC: ER 14:30 → TELE 18:49 → TELE-CENTR 12-12 09:04
PROVIDERS: ADMIT Nurse Practitioner Family; ATTEND Internal Medicine Geriatric Medicine
DX: I48.0 Paroxysmal atrial fibrillation (principal); I11.0 Hypertensive heart disease with heart failure; I50.42 Chronic combined systolic (congestive) and diastolic (congestive) heart failure; E03.9 Hypothyroidism, unspecified; I48.19 Other persistent atrial fibrillation; Z79.01 Long term (current) use of anticoagulants; E66.01 Morbid (severe) obesity due to excess calories; E78.5 Hyperlipidemia, unspecified; G47.33 Obstructive sleep apnea (adult) (pediatric); I25.10 Atherosclerotic heart disease of native coronary artery without angina pectoris; Z88.5 Allergy status to narcotic agent; Z88.1 Allergy status to other antibiotic agents; Z82.49 Family history of ischemic heart disease and other diseases of the circulatory system; Z83.3 Family history of diabetes mellitus; Z90.49 Acquired absence of other specified parts of digestive tract; I25.2 Old myocardial infarction; Z80.9 Family history of malignant neoplasm, unspecified; Z81.1 Family history of alcohol abuse and dependence; Z82.61 Family history of arthritis; Z68.42 Body mass index [BMI] 45.0-49.9, adult
CPT/HCPCS: 36415; 71045; 80048; 80053; 80061; 80162; 81001; 83735; 83880; 84443; 84484; 85025; 93005; 93306; 96365; 96375; 99291; G0378; Q9956

== ENCOUNTER 2024-07-15 04:33 | Emergency (ER) | payer MEDICAID ==
[~2024-07-15] VITALS: Ht 162.6 cm; Wt 118.0 kg
[~2024-07-15 04:33] MED LIST changes: +ALBU108A5 INH; +CITA-77 PO; -CITA10TA6 PO; +DILT120C20 PO; -DILT60TA PO; +IPR002IS NEB; +LEVO150T10 PO; +LISI10TA34 PO
--- NOTE | 2024-07-15 05:05 | ED.PDOC ---
History of Present Illness HPI Comments 64-year-old female presents with a chief complaint of knee pain x months. Patient reports that her pain is localized to the lateral right knee. Patient mentions that it is painful to apply weight to her knee/leg. Patient reports that she ambulates with a cane, but is now using a walker at home. Patient menti ons that she is supposed to have knee replacement surgery, but only when she is below 200 lbs per her orthopedic surgeon. Chief Complaint: Lower Extremity Time Seen by MD: 04:57 Primary Care Provider: Tonya Reviewed Notes: Medications, Allergies Allergies: Coded Allergies: Levofloxacin (Verified Allergy, Mild, 05/03/23) Body aches and nausea Codeine (Verified Allergy, Unknown, 02/05/21) Home Meds Active Scripts Metoprolol Succinate (Toprol Xl) 50 Mg Tab, 50 MG PO BID, #60 TAB 5 Refills Prov:TOYIN DELATORRE MD 05/04/23 Reported Medications Ipratropium Wells (Ipratropium Wells) 0.02 % Becca, NEB 12/12/23 Albuterol Sulfate (Albuterol Sulfate Hfa) 108 Mcg/Act Aer, INH 12/12/23 Lisinopril (Lisinopril) 10 Mg Tab, 1 TAB PO DAILY 12/12/23 Levothyroxine Sodium (Levothyroxine Sodium) 150 Mcg Tab, 1 TAB PO DAILY 12/12/23 Diltiazem Hcl (Diltiazem Hcl Er) 120 Mg Cap, 1 TAB PO BID 12/12/23 Citalopram Hydrobromide (Citalopram Hydrobromide) 20 Mg Tab, 1 TAB PO DAILY 12/12/23 Atorvastatin Calcium (ATORVASTATIN CALCIUM) 20 Mg Tab, 1 TAB PO BID for HIGH CHOLESTEROL 05/18/23 Digoxin (Digox) 125 Mcg Tab, 125 MCG PO for A. FIB, TAB 04/30/23 Acetaminophen (Acetaminophen Extra Stren) 500 Mg Tab, 500 MG PO HS, TAB 04/30/23 Famotidine (Famotidine) 20 Mg Tab, 40 MG PO DAILY for GERD for 30 Days, MG 04/30/23 Apixaban Base (ELIQUIS) 5 Mg Tab, 5 MG PO BID for A FIB, TAB 04/30/23 Nitroglycerin (NTROSTAT SUBLINGUAL) 0.4 Mg Sl, 0.4 MG SL PRN, TAB *MAY REPEAT EVERY 5 MINUTES X 3 TOTAL IF NO RELIEF, INITIATE ANALGESIC THERAPY. NOTIFY PHYSICIAN *Do not crush. 01/07/21 Tramadol Hcl (Tramadol Hcl) 50 Mg Tab, 50 MG PO BID PRN for PAIN SCALE 7 THRU 10 01/07/21 Information Source: Patient Mode of Arrival: EMS Severity: Moderate Timing: Months Duration: Since onset Prehospital treatment: None Past Medical History PAST MEDICAL HISTORY: AFIB, Angina, CHF, High Lipids, HTN, HI Surgical History: Cholecystectomy, Tonsillectomy ORDER BOOKER History: No Pertinent ORDER BOOKER History Family History Family History: Family hx of DM, Family hx of heart hussain, Family hx of HTN Social History Smoker: Non-Smoker Alcohol: Denies ETOH Use Drugs: Denies Drug Use Lives In: Home Constitutional: denies: chills, diaphoresis, fatigue, fever, malaise, sweats, weakness, others EENTM: denies: blurred vision, double vision, ear bleeding, ear discharge, ear drainage, ear pain, ear ringing, eye pain, eye redness, hearing loss, mouth pain, mouth swelling, nasal discharge, nose bleeding, nose congestion, nose pain, photophobia, tearing, throat pain, throat swelling, voice changes, others Respiratory: denies: cough, hemoptysis, orthopnea, SOB at rest, shortness of breath, SOB with excertion, stridor, wheezing, others Cardiovascular: denies: chest pain, dizzy spells, diaphoresis, Dyspnea on exertion, edema, irregular heart beat, left arm pain, lightheadedness, palpitations, PND, syncope, others Gastrointestinal: denies: abdomen distended, abdominal pain, blood streaked bowels, constipated, diarrhea, dysphagia, difficulty swallowing, hematemesis, melena, nausea, poor appetite, poor fluid intake, rectal bleeding, rectal pain, vomiting, others Genitourinary: denies: abnormal vagina bleeding, burning, dyspareunia, dysuria, flank pain, frequency, hematuria, incontinence, pain, , vagina discharge, urgency, others Neurological: denies: dizziness, fainting, headache, left sided numbness, left sided weakness, numbness, paresthesia, pre-existing deficit, right sided numbness, right sided weakness, seizure, speech problems, tingling, tremors, weakness, others Musculoskeletal: reports: muscle pain (RIGHT LATERAL KNEE PAIN); denies: back pain, gout, joint pain, joint swelling, muscle stiffness, neck pain, others Integumetry: denies: bruises, change in color, change in hair/nails, dryness, laceration, lesions, lumps, rash, wounds, others Allergic/Immunocompromised: denies: Difficulty Healing, Frequent Infections, Hives, Itching, others Hematologic/Lymphatic: denies: anemia, blood clots, easy bleeding, easy bruising, swollen glands, others Endocrine: denies: excessive hunger, excessive sweating, excessive thirst, excessive urination, flushing, intolerance to cold, intolerance to heat, unexplained weight gain, unexplained weight loss, others Psychiatric: denies: anxiety, bipolar disorder, depression, hopeless, panic disorder, schizophrenia, sleepless, suicidal, others All Other Systems: Reviewed and Negative Physical Exam General Appearance: Moderate Distress, Normal HEENT: Normal ENT Inspection, Pharynx Normal, TMs Normal Neck: Full Range of Motion, Non-Tender, Normal, Normal Inspection Respiratory: Chest Non-Tender, Lungs Clear, No Accessory Muscle Use, No Respiratory Distress, Normal Breath Sounds Cardiovascular: No Edema, No JVD, No Murmur, No Gallop, Normal Peripheral Pulses, Regular Rate/Rhythm Breast Exam: Deferred Gastrointestinal: No Organomegaly, Non Tender, No Pulsatile Mass, Normal Bowel Sounds, Soft Genitalia: Deferred Pelvic: Deferred Rectal: Deferred Extremities: No calf tenderness, Normal capillary refill, Normal inspection, Normal range of motion, Non-tender, No pedal edema Musculoskeletal : Apperance: Normal Neurologic: Alert, copyman II-XII nml as Tested, No Motor Deficits, Normal Affect, Normal Mood, No Sensory Deficits Cerebellar Function: Normal Reflexes: Normal Skin: Dry, Normal Color, Warm Peripheral Pulses: 3+ Radial (R), 3+ Radial (L) Lymphatic: No Adenopathy Was a procedure done? Was a procedure done?: No Differential Dx Considerations may include: Osteoarthritis Electrolyte imbalance X-Ray, Labs, Meds, VS Vital Signs Date Time Temp Pulse Resp B/P (MAP) Pulse Ox O2 Delivery O2 Flow Rate FiO2 07/15/24 07:31 97.7 69 18 125/68 (87) 95 97.7 07/15/24 05:13 Room Air* 0 21 07/15/24 05:12 98.7 73 18 126/84 (98) 98 98.7 07/15/24 04:38 98.0 80 20 130/74 (92) 97 Current Medications Medications (Trade) Dose Ordered Sig/[place] Route Start Time Stop Time Status Last Admin Acetaminophen/ Hydrocodone Bitart ([place] 5/325MG Tab) 1 tab ONCE ONCE PO 07/15/24 05:00 07/15/24 05:01 DC 07/15/24 05:25 Patient alert. Complaining of knee pain. X-ray shows osteoarthritis. Vitals stable. Answering all questions. Was given [place]. Was given morphine. Was given Zofran. Chronic condition. No acute process. No leg swelling. No shortness a breath. No chest pain. Reviewed her history. Explained to the patient. Was told to follow up with her primary care physician. Was told to come back if there is any problem. Time of 1ST Reevaluation: 05:27 Reevaluation 1ST: Unchanged Time of 2ND Reevaluation: 07:58 Reevaluation 2ND: Improved Patient Education/Counseling: Diagnosis, Treatment, Prognosis Family Education/Counseling: No Family Present Departure 1 Departure Time of Disposition: 07:59 Impression: Primary Impression: Osteoarthritis Qualified Codes: M17.11 - Unilateral primary osteoarthritis, right knee Disposition: 01 HOME / SELF CARE / HOMELESS Condition: Good e-Prescriptions Ibuprofen Micronized (MOTRIN TABLET) 600 Mg Tb 600 MG PO TID PRN for 3 Days, #9 TAB *Black box warning-NSAIDS can increase risk of HI & hypertension, GI irritation, ulceration, bleed, perferation. Do not use post cardiac surgery. Use short duration/lowest effective dose. Prov: PABLITO SAM MD 07/15/24 Discharged With: Self Critical Care Note Critical Care Time?: No Stability Stability form required: No Heart Score Heart Score: Heart Score Response (Comments) Value History N/A 0 EKG N/A 0 Age N/A 0 Risk Factors N/A 0 Troponin N/A 0 Total 0 I personally scribed for GABRIELA HIDALGO MD ([email or web address]) on 07/15/24 at 05:05. Electronically submitted by Farhat Rich ([email or web address]). GABRIELA HIDALGO MD Jul 15, 2024 05:05 PABLITO SAM MD Jul 15, 2024 08:00
[2024-07-15] MEDS: HYDROcodone-ACET 5/325MG TAB PO ONE (05:25)
--- NOTE | 2024-07-15 06:24 | DVH ---
PROCEDURE: Right knee radiographs. INDICATION: right knee pain TECHNIQUE: 3 views of the right knee were obtained. COMPARISON: None FINDINGS: There is no evidence of acute fracture or dislocation. Severe medial and lateral compartme nt joint space narrowing. There are periarticular osteophytes. Small knee joint effusion. The soft t issues are unremarkable. IMPRESSION: 1. No fracture or dislocation. 2. Severe tricompartmental osteoarthritis.
[2024-07-15 07:31] VITALS: TEMP 97.7; O2SAT 95
[2024-07-15] MEDS ORDERED: IBU600T PO (08:00)
[2024-07-15] MEDS: ONDANSETRON HCL 4 MG/2 ML VIAL IV ONE (08:04)
[2024-07-15] MEDS: MORPHINE SULFATE 4 MG/ML SYR/VIAL IV ONE (08:05)
[2024-07-15 08:27] VITALS: BP 98/72; PULSE 80; RESP 20
== END 2024-07-15 08:32 | disposition home or self-care (01) ==
LOC: ER 04:33 → EDBD 04:33 → ER 08:31
DX: M17.11 Unilateral primary osteoarthritis, right knee (principal); I48.91 Unspecified atrial fibrillation; I11.0 Hypertensive heart disease with heart failure; I50.9 Heart failure, unspecified; E78.5 Hyperlipidemia, unspecified; Z90.89 Acquired absence of other organs; Z90.49 Acquired absence of other specified parts of digestive tract; Z79.01 Long term (current) use of anticoagulants; Z79.899 Other long term (current) drug therapy; Z88.1 Allergy status to other antibiotic agents; Z88.5 Allergy status to narcotic agent
CPT/HCPCS: 73562; 96374; 96375; 99285; J2270; J2405